=== PATIENT | male | born 1960 | race Caucasian/White ===

== ENCOUNTER 2017-03-27 21:23 | Emergency (ER) | payer OTHER ==
[~2017-03-27] VITALS: Ht 188 cm; Wt 112.0 kg
[~2017-03-27 21:23] MED LIST: LISI-334 PO
[2017-03-27] MEDS ORDERED: IV NORMAL SALINE 1,000ML 1,000 ML IV SCH (21:26)
[2017-03-27] MEDS ORDERED: FAMOTIDINE 20 MG TABLET PO ONE (21:30)
[2017-03-27] MEDS ORDERED: MORPHINE SULFATE 2 MG/ML DISP.SYRIN. IV ONE (21:30)
[2017-03-27] MEDS ORDERED: ASPIRIN 81 MG TAB.CHEW PO ONE (21:30)
[2017-03-27 21:56] LABS: BASO % 0 % (0-3); EOS # 0.1 x10^3/uL (0.0-0.7); EOS % 1 % (0-3); HEMATOCRIT 42.3 % (39.0-53.0); HEMOGLOBIN 14.9 g/dL (13.0-17.5); LYMPH # 1.8 x10^3/uL (1.0-4.8); LYMPH % 16 % (24-48); MEAN CORPUSCULAR HEMOGLOBIN 34 pg (25-35); MEAN CORPUSCULAR HGB CONC 35 g/dL (31-37); MEAN CORPUSCULAR VOLUME 95 fL (79-100); MONO # 0.9 x10^3/uL (0.0-1.1); MONO % 8 % (0-9); NEUT # 8.5 x10^3uL (1.8-7.7); NEUT % 75 % (31-73); PLATELET COUNT 296 x10^3/uL (140-400); RED BLOOD COUNT 4.44 x10^6/uL (4.30-5.70); RED CELL DISTRIBUTION WIDTH 12.6 % (11.5-14.5); WHITE BLOOD COUNT 11.3 x10^3/uL (4.0-11.0)
[2017-03-27 22:17] LABS: CALCIUM 8.8 mg/dL (8.5-10.1); CREATININE 0.9 mg/dL (0.7-1.3); GFR 87.6; POTASSIUM 3.9 mmol/L (3.5-5.1); TOTAL PROTEIN 7.3 g/dL (6.4-8.2)
[2017-03-27 22:18] LABS: BARBITURATES NEG (NEG); BENZODIAZEPINES NEG (NEG); CANNABINOIDS NEG (NEG); COCAINE NEG (NEG); METHADONE NEG (NEG); OPIATES NEG (NEG); PHENCYCLIDINE NEG (NEG)
[2017-03-27 22:19] LABS: AMPHETAMINE/METHAMPHETAMINE NEG (NEG)
--- NOTE | 2017-03-27 22:22 | ED.ADGEN ---
Past History Past Medical History: GERD, Hypertension, Other Past Surgical History: Cholecystectomy, Tonsillectomy Alcohol Use: Occasionally Drug Use: None Adult General Chief Complaint Chief Complaint "I did not feel quite right yesterday but today had developed chest pain this afternoon... Right side of my chest" HPI HPI Patient is a 56 year old male who presents with Rt. sided chest pain. Pt. has been moving. Patient denies any past history of cardiac disease. Patient does have a history of hypertension. There is some family history of cardiac disease late onset. 70s . No history of productive cough, fever or chills, drug abuse, or immunosuppression. Pain is somewhat reproducible right-sided chest. Pain is somewhat worse with deep breaths and cough. Pain is impressed last 2 hours currently rated 4 out of 10 Review of Systems Review of Systems Constitutional: Denies fever or chills [] Eyes: Denies change in visual acuity, redness, or eye pain [] HENT: Denies nasal congestion or sore throat [] Respiratory: Denies cough or shortness of breath [] Cardiovascular: No additional information not addressed in HPI [] GI: Denies abdominal pain, nausea, vomiting, bloody stools or diarrhea [] : Denies dysuria or hematuria [] Musculoskeletal: Denies back pain or joint pain [] Integument: Denies rash or skin lesions [] Neurologic: Denies headache, focal weakness or sensory changes [] Endocrine: Denies polyuria or polydipsia [] All other systems were reviewed and found to be within normal limits, except as documented in this note. Family History Family History Late onset cardiac disease, cancer Current Medications Current Medications Current Medications Medications (Trade) Dose Ordered Sig/Suhas Start Time Stop Time Status Last Admin Dose Admin Aspirin (Children'S Aspirin) 324 mg 1X ONCE 03/27/17 21:30 03/27/17 21:32 DC 03/27/17 21:50 324 MG Azithromycin (Zithromax) 500 mg 1X ONCE 03/28/17 00:00 03/28/17 00:01 DC 03/28/17 00:36 500 MG Famotidine (Pepcid) 20 mg 1X ONCE 03/27/17 21:30 03/27/17 21:32 DC 03/27/17 21:51 20 MG Info (Do NOT chart on this entry -- for MONITORING) 1 each PRN DAILY PRN 03/27/17 23:45 03/28/17 01:37 DC Iohexol (Omnipaque 300 Mg/ml) 75 ml 1X ONCE 03/28/17 00:15 03/28/17 00:16 DC 03/28/17 00:04 75 ML Ketorolac Tromethamine (Toradol) 30 mg 1X ONCE 03/28/17 00:00 03/28/17 00:01 DC 03/28/17 00:37 30 MG Morphine Sulfate (Morphine 2mg Syringe) 2 mg 1X ONCE 03/27/17 21:30 03/27/17 21:32 DC 03/27/17 21:50 2 MG Sodium Chloride 1,000 ml @ 1,000 mls/hr Q1H 03/27/17 21:26 03/27/17 22:25 DC 03/27/17 21:48 1,000 MLS/HR Allergies Allergies Allergies Coded Allergies Type Severity Reaction Last Updated Verified No Known Drug Allergies 07/26/15 No Physical Exam Physical Exam Constitutional: Well developed, well nourished, no acute distress, non-toxic appearance. [] HENT: Normocephalic, atraumatic, bilateral external ears normal, oropharynx moist, no oral exudates, nose normal. [] Eyes: PERRLA, EOMI, conjunctiva normal, no discharge. [] Neck: Normal range of motion, no tenderness, supple, no stridor. [] Cardiovascular:Heart rate regular rhythm, no murmur [] Lungs & Thorax: Bilateral breath sounds clear to auscultation [] Abdomen: Bowel sounds normal, soft, no tenderness, no masses, no pulsatile masses. Old surgical scars. Skin: Warm, dry, no erythema, no rash. []Tattoos Back: No tenderness, no CVA tenderness. [] Extremities: No tenderness, no cyanosis, no clubbing, ROM intact, no edema. No cording noted Neurologic: Alert and oriented X 3, normal motor function, normal sensory function, no focal deficits noted. [] Psychologic: Affect anxious judgement normal, mood normal. [] Current Patient Data Vital Signs Vital Signs Date Time Temp Pulse Resp B/P (MAP) Pulse Ox O2 Delivery O2 Flow Rate FiO2 03/27/17 21:23 98.1 87 26 97 Room Air Lab Results Laboratory Tests Test 03/27/17 21:38 03/27/17 21:57 03/28/17 00:57 White Blood Count 11.3 x10^3/uL (4.0-11.0) H Red Blood Count 4.44 x10^6/uL (4.30-5.70) Hemoglobin 14.9 g/dL (13.0-17.5) Hematocrit 42.3 % (39.0-53.0) Mean Corpuscular Volume 95 fL (79-100) Mean Corpuscular Hemoglobin 34 pg (25-35) Mean Corpuscular Hemoglobin Concent 35 g/dL (31-37) Red Cell Distribution Width 12.6 % (11.5-14.5) Platelet Count 296 x10^3/uL (140-400) Neutrophils (%) (Auto) 75 % (31-73) H Lymphocytes (%) (Auto) 16 % (24-48) L Monocytes (%) (Auto) 8 % (0-9) Eosinophils (%) (Auto) 1 % (0-3) Basophils (%) (Auto) 0 % (0-3) Neutrophils # (Auto) 8.5 x10^3uL (1.8-7.7) H Lymphocytes # (Auto) 1.8 x10^3/uL (1.0-4.8) Monocytes # (Auto) 0.9 x10^3/uL (0.0-1.1) Eosinophils # (Auto) 0.1 x10^3/uL (0.0-0.7) Basophils # (Auto) 0.0 x10^3/uL (0.0-0.2) Prothrombin Time 10.6 SEC (9.4-11.4) Prothrombin Time INR 1.0 (0.9-1.1) PTT 27 SEC (23-33) D-Dimer (Li) < 0.19 mg/L (0.00-0.50) Sodium Level 141 mmol/L (136-145) Potassium Level 3.9 mmol/L (3.5-5.1) Chloride Level 104 mmol/L (98-107) Carbon Dioxide Level 26 mmol/L (21-32) Anion Gap 11 (6-14) Blood Urea Nitrogen 13 mg/dL (8-26) Creatinine 0.9 mg/dL (0.7-1.3) Estimated GFR (Cockcroft-Gault) 87.6 Glucose Level 109 mg/dL (70-99) H Calcium Level 8.8 mg/dL (8.5-10.1) Magnesium Level 2.0 mg/dL (1.8-2.4) Total Bilirubin 4.0 mg/dL (0.2-1.0) H Direct Bilirubin 1.0 mg/dL (0.0-0.2) H Aspartate Amino Transferase (AST) 31 U/L (15-37) Alanine Aminotransferase (ALT) 56 U/L (16-63) Alkaline Phosphatase 79 U/L (46-116) Creatine Kinase 87 U/L (39-308) Creatine Kinase MB (Mass) 2.1 ng/mL (0.0-3.6) Creatine Kinase MB Relative Index 2.4 % (0-4) Troponin I Quantitative < 0.017 ng/mL (0-0.055) II-Inw-G-Type Natriuretic Peptide 11 pg/mL (0-124) Total Protein 7.3 g/dL (6.4-8.2) Albumin 4.0 g/dL (3.4-5.0) Lipase 145 U/L (73-393) Urine Collection Type Unknown Urine Color [place] Urine Clarity Clear Urine pH 5.5 Urine Specific [place] 1.025 Urine Protein Trace (NEG-TRACE) Urine Glucose (UA) Neg mg/dL (NEG) Urine Ketones (Stick) Trace mg/dL (NEG) Urine Blood Trace (NEG) Urine Nitrite Pos (NEG) Urine Bilirubin Neg (NEG) Urine Urobilinogen Dipstick 4 mg/dL (0.2 mg/dL) Urine Leukocyte Esterase Neg (NEG) Urine RBC 1-2 /HPF (0-2) Urine WBC 5-10 /HPF (0-4) Urine Squamous Epithelial Cells Few /LPF Urine Bacteria 0 /HPF (0-FEW) Urine Mucus Marked /LPF Urine Opiates Screen Neg (NEG) Urine Methadone Screen Neg (NEG) Urine Barbiturates Neg (NEG) Urine Phencyclidine Screen Neg (NEG) Urine Amphetamine/Methamphetamine Neg (NEG) Urine Benzodiazepines Screen Neg (NEG) Urine Cocaine Screen Neg (NEG) Urine Cannabinoids Screen Neg (NEG) Urine Ethyl Alcohol Neg (NEG) POC Troponin I 0.00 ng/ml (<0.08) EKG EKG My interpretation EKG shows sinus rhythm at 90 bpm no acute morphology[] Radiology/Procedures Radiology/Procedures My interpretation of CXR, dependent atelectasis, more or Lt. [] CT= No PE, or large Pneumonia Course & Med Decision Making Course & Med Decision Making Pertinent Labs and Imaging studies reviewed. (See chart for details). Take daily ASA . Follow up with primary. Return if any concerns. [] Final Impression Final Impression 1. Chest pain[] 2. Pleurisy 3. Bronchitis 4. Viral Syndrome Problems: Dragon Disclaimer Dragon Disclaimer This electronic medical record was generated, in whole or in part, using a voice recognition dictation system. MATTHEW ESPAÑA MD Mar 27, 2017 22:22
[2017-03-27 22:41] LABS: BACTERIA,URINE 0 /HPF (0-FEW); BILIRUBIN,URINE NEG (NEG); CLARITY,URINE CLEAR; COLOR,URINE AMBER; GLUCOSE,URINE NEG (NEG); NITRITE,URINE POS (NEG); SQUAMOUS EPITHELIAL CELL,UR FEW /LPF; UROBILINOGEN,URINE 4 mg/dL (0.2 mg/dL)
[2017-03-27] MEDS ORDERED: CONTRAST GIVEN MC PRN (23:45)
[2017-03-28] MEDS ORDERED: KETOROLAC 30 MG/ML VIAL. IV ONE
[2017-03-28] MEDS ORDERED: AZITHROMYCIN 250 MG TABLET. PO ONE
[2017-03-28] MEDS ORDERED: IOHEXOL 300 MG/ML 75 ML VIAL. IV ONE (00:15)
--- NOTE | 2017-03-28 00:47 | RAD ---
CTA scan of the Chest with Contrast (Pulmonary Embolism protocol) 03/28/2017 Clinical History: Chest pain and shortness of breath since earlier tonight. Technique: After the intravenous administration of 75 cc of Omnipaque 300, contiguous, 0.625 mm axial sections were obtained through the chest. 2 mm axial and 3D MIP coronal and sagittal reconstructed images were obtained. One or more of the following individualized dose reduction techniques were utilized for this study: 1. Automated exposure control. 2. Adjustment of the mA and/or kV according to patient size. 3. Use of iterative reconstruction technique. Findings: No filling defect is seen within the major branches of either pulmonary artery. There is no CT evidence of pulmonary embolism. The heart is mildly enlarged. The thoracic aorta is tortuous but tapers normally. Scattered atheromatous plaque formation is seen involving the thoracic aorta. Minimal dependent subsegmental atelectasis is seen involving both lungs. Linear bands of subsegmental atelectasis are seen involving the inferior aspect of the right middle lobe and lingula and both lower lobes. No pleural effusion or pneumothorax is seen. A 3.4 cm rounded low-attenuation lesion is seen involving the superior pole left kidney which likely represents a cyst. Impression: There is no CT evidence of pulmonary embolism. Electronically signed by: Gregory Foote MD (03/28/2017 12:43 AM) [id number]
[2017-03-28] MEDS ORDERED: AZIT250T PO (01:05)
[2017-03-28 01:26] VITALS: BP 128/73
--- NOTE | 2017-03-28 08:01 | RAD ---
Portable chest, 03/27/2017: History: Chest pain Comparison is made to a study from 07/26/2015. The heart size and pulmonary vascularity are normal. Hazy opacities along the cardiac margins are compatible with prominent epicardial fat pads accentuated by lordotic patient positioning. No acute infiltrate is seen. There is no evidence of pleural fluid. IMPRESSION: No acute cardiopulmonary abnormality is detected.
--- NOTE | 2017-03-28 10:48 | EKG ---
[address] [address] Test Date: 2017-03-27 Test Time: 21:29:32 Pat Name: RIC CASTRO Department: Room: Gender: M Director Skills: [place] : 1960 Requested By: MATTHEW ESPAÑA Order Number: [id number] Reading MD: Measurements Intervals [place] Rate: 90 P: 41 NE: 160 QRS: 39 QRSD: 78 T: 43 QT: 328 QTc: 405 Interpretive Statements SINUS RHYTHM OTHERWISE NORMAL ECG RI6.01 Unconfirmed report No previous ECG available for comparison
--- NOTE | 2017-03-28 10:48 | EKG ---
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
== END 2017-03-28 01:26 | disposition home or self-care (01) ==
LOC: ER 21:23
DX: R09.1 Pleurisy (principal); B34.9 Viral infection, unspecified; J40 Bronchitis, not specified as acute or chronic; I10 Essential (primary) hypertension; K21.9 Gastro-esophageal reflux disease without esophagitis
CPT/HCPCS: 36415; 71010; 71275; 80048; 80076; 80307; 81001; 82553; 83690; 83735; 83880; 84443; 84484; 85025; 85379; 85610; 85730; 87086; 93005; 96361; 96374; 96375; 99285; J0456; J1885; J2270; Q9967; G0479; J7030

== ENCOUNTER 2018-08-25 13:57 | Emergency (ER) | payer OTHER ==
[~2018-08-25] VITALS: Ht 188 cm; Wt 106.1 kg
[2018-08-25 13:57] VITALS: BP 146/84
[~2018-08-25 13:57] MED LIST changes: +AZIT250T PO
[2018-08-25] MEDS ORDERED: KETOROLAC 15 MG/ML VIAL. IM ONE (14:15)
--- NOTE | 2018-08-25 14:17 | PHYS DOC ---
Past History Past Medical History: Cancer (melanoma), GERD, Hypertension, Other Past Surgical History: Cancer Surgery (left neck resection secondary to melanoma), Cholecystectomy, Tonsillectomy Smoking: Non-smoker Alcohol Use: Occasionally Drug Use: None Adult General Chief Complaint Chief Complaint: BACK PAIN OR INJURY HPI HPI Patient is a 57-year-old male presents complaining of left neck and left low back pain with radiation into his left leg. This is been present for the past several weeks. No improvement with [therapy or massage therapy. No improvement with acetaminophen. It has been getting worse over time. Patient denies any loss of bowel or bladder control. Denies any trauma. Denies any fever. Denies history of IV drug use or abuse. Patient does have a history of malignant melanoma in the that was resected from his left neck. He has had no recurrence of this. Denies any recent weight changes.[] Review of Systems Review of Systems Constitutional: Denies fever or chills [] Eyes: Denies change in visual acuity, redness, or eye pain [] HENT: Denies nasal congestion or sore throat [] Respiratory: Denies cough or shortness of breath [] Cardiovascular: No chest pain or palpitations[] GI: Denies abdominal pain, nausea, vomiting, bloody stools or diarrhea [] : Denies dysuria or hematuria [] Musculoskeletal: See history of present illness[] Integument: Denies rash or skin lesions [] Neurologic: Denies headache, focal weakness or sensory changes [] Endocrine: Denies polyuria or polydipsia [] All other systems were reviewed and found to be within normal limits, except as documented in this note. Allergies Allergies Allergies Coded Allergies Type Severity Reaction Last Updated Verified No Known Drug Allergies 07/26/15 No Physical Exam Physical Exam Constitutional: Well developed, well nourished, no acute distress, non-toxic appearance. [] HENT: Normocephalic, atraumatic, bilateral external ears normal, oropharynx moist, no oral exudates, nose normal. [] Eyes: PERRLA, EOMI, conjunctiva normal, no discharge. [] Neck: Normal range of motion, tenderness in the left cervical paraspinal musculature and left trapezius, supple, no stridor. [] Cardiovascular:Heart rate regular rhythm, no murmur [] Lungs & Thorax: Bilateral breath sounds clear to auscultation [] Abdomen: Bowel sounds normal, soft, no tenderness, no masses, no pulsatile masses. [] Skin: Warm, dry, no erythema, no rash. [] Back: Tenderness in the left lumbar paraspinal musculature, full active range of motion, normal gait, no specific midline tenderness to percussion.no CVA tenderness. [] Extremities: No tenderness, no cyanosis, no clubbing, ROM intact, no edema. [] Neurologic: Alert and oriented X 3, normal motor function, normal sensory function, no focal deficits noted. [] Psychologic: Affect normal, judgement normal, mood normal. [] EKG EKG [] Radiology/Procedures Radiology/Procedures PROCEDURE: CT LUMBAR SPINE WO CONTRAST CT scan of the lumbar spine without contrast 08/25/2018 CLINICAL HISTORY: Low back pain. TECHNIQUE: Unenhanced, contiguous, 0.625 mm axial sections were obtained for lumbar spine. 3 mm reconstructed sagittal, axial and coronal images were obtained. One or more of the following individualized dose reduction techniques were utilized for this study: 1. Automated exposure control. 2. Adjustment of the mA and/or kV according to patient size. 3. Use of iterative reconstruction technique. FINDINGS: Sagittal and coronal reconstructed images demonstrate minimal S-shaped curvature of the thoracolumbar spine. Mild retrolisthesis of L2 in relation L3 is seen. Degenerative changes consisting of disc space narrowing, vertebral endplate sclerosis and mild anterior and posterior vertebral body osteophyte formation are seen at this level. Mild atherosclerotic calcification of the abdominal aorta is seen. Nonobstructing calculi are seen involving both kidneys. These measure 2 mm to 1 cm in size. Rounded low-attenuation lesions are seen involving the left kidney which likely represent cysts. These measure 5 mm to 3 cm in size. No fracture or subluxation of the lumbar vertebrae seen. The changes of degenerative disc disease are seen involving the lumbar disc spaces. These consist of minimal to mild generalized disc bulges, degenerative changes involving the facet joints and mild ligamentum flavum hypertrophy. These findings do not result in significant central spinal canal or neural foraminal stenosis at any level. IMPRESSION: Degenerative changes are seen involving the lumbar spine as outlined above. These findings do not result in significant central spinal canal or neural foraminal stenosis. No acute osseous abnormality is seen. PROCEDURE: CT CERVICAL SPINE WO CONTRAST CT scan of the cervical spine without contrast 08/25/2018 Clinical history: Left neck pain. Technique: Unenhanced, contiguous, 0.625 mm axial sections were obtained through the cervical spine. Axial, coronal and sagittal reconstructed images were obtained. One or more of the following individualized dose reduction techniques were utilized for this study: 1. Automated exposure control. 2. Adjustment of the mA and/or kV according to patient size. 3. Use of iterative reconstruction technique. Findings: Sagittal and coronal reconstructed images demonstrate mild S-shaped curvature of the cervical thoracic spine. There is reversal of the normal cervical lordosis. Degenerative changes consisting of vertebral endplate sclerosis and minimal to mild anterior and posterior vertebral body osteophyte formation are seen throughout the cervical disc spaces. Disc space narrowing is seen involving prominently the C6-7 disc. No fracture or subluxation of the cervical vertebrae is seen. Degenerative changes are seen throughout the cervical disc spaces consisting of minimal to mild generalized disc bulges and degenerative changes involving the uncovertebral and facet joints. These findings do not result in significant central spinal canal stenosis at any level. Mild to moderate left greater than right neural foraminal stenosis is seen at C3-4. IMPRESSION: Degenerative changes are seen involving the cervical disc spaces as discussed above. These findings do not result in significant central spinal canal stenosis at any level. Mild to moderate left greater than right neural foraminal stenosis is seen at C3-4. No acute osseous abnormality is seen.[] Course & Med Decision Making Course & Med Decision Making Pertinent Labs and Imaging studies reviewed. (See chart for details) ED course: Patient arrived, was placed in bed, and tolerated exam well. He was transported to and from [place] with any complications. After return of the imaging f indings, these were discussed with the patient who voiced understanding. He did achieve some measure of pain improvement with the IM ketorolac. All questions were answered. Patient was discharged in improved condition. Medical decision making: There is no evidence of a fracture, dislocation/subluxation, neurologic compromise, cauda equina syndrome, nor metastatic cancer given his previous cancer history.[] Dragon Disclaimer Dragon Disclaimer This electronic medical record was generated, in whole or in part, using a voice recognition dictation system. Departure Departure: Impression: Primary Impression: Neck pain Additional Impression: Low back pain Disposition: HOME, SELF-CARE Condition: IMPROVED Referrals: VALENTINO LUGO MD (PCP) Follow-up in 2 days Patient Instructions: Cervical Strain and Sprain with [facility], Low Back Strain with [facility] Additional Instructions: Follow-up with your regular doctor in 2 days. Return to the ER if worsening discomfort, loss of bowel or bladder control, or any other concerns Scripts Prednisone (PREDNISONE) 50 Mg Tablet 1 TAB PO DAILY for INFLAMMATION, #5 TAB Prov: TIFFANY KIRK DO 08/25/18 Orphenadrine Citrate (ORPHENADRINE CITRATE) 100 Mg Tablet.er 100 MG PO BID for BACK PAIN, #20 TAB.SR Prov: TIFFANY KIRK DO 08/25/18 Meloxicam (MELOXICAM) 7.5 Mg Tablet 7.5 MG PO DAILY for PAIN, #20 TAB Prov: TIFFANY KIRK DO 08/25/18 Problem Qualifiers Additional Impression: Low back pain Chronicity: acute Back pain laterality: left Sciatica presence: unspecified whether sciatica present Qualified Codes: M54.5 - Low back pain TIFFANY KIRK DO August 25, 2018 14:17
--- NOTE | 2018-08-25 14:55 | RAD ---
CT scan of the cervical spine without contrast 08/25/2018 Clinical history: Left neck pain. Technique: Unenhanced, contiguous, 0.625 mm axial sections were obtained through the cervical spine. Axial, coronal and sagittal reconstructed images were obtained. One or more of the following individualized dose reduction techniques were utilized for this study: 1. Automated exposure control. 2. Adjustment of the mA and/or kV according to patient size. 3. Use of iterative reconstruction technique. Findings: Sagittal and coronal reconstructed images demonstrate mild S-shaped curvature of the cervical thoracic spine. There is reversal of the normal cervical lordosis. Degenerative changes consisting of vertebral endplate sclerosis and minimal to mild anterior and posterior vertebral body osteophyte formation are seen throughout the cervical disc spaces. Disc space narrowing is seen involving prominently the C6-7 disc. No fracture or subluxation of the cervical vertebrae is seen. Degenerative changes are seen throughout the cervical disc spaces consisting of minimal to mild generalized disc bulges and degenerative changes involving the uncovertebral and facet joints. These findings do not result in significant central spinal canal stenosis at any level. Mild to moderate left greater than right neural foraminal stenosis is seen at C3-4. IMPRESSION: Degenerative changes are seen involving the cervical disc spaces as discussed above. These findings do not result in significant central spinal canal stenosis at any level. Mild to moderate left greater than right neural foraminal stenosis is seen at C3-4. No acute osseous abnormality is seen. Electronically signed by: Gregory Foote MD (08/25/2018 2:52 PM) [facility]
--- NOTE | 2018-08-25 15:00 | RAD ---
CT scan of the lumbar spine without contrast 08/25/2018 CLINICAL HISTORY: Low back pain. TECHNIQUE: Unenhanced, contiguous, 0.625 mm axial sections were obtained for lumbar spine. 3 mm reconstructed sagittal, axial and coronal images were obtained. One or more of the following individualized dose reduction techniques were utilized for this study: 1. Automated exposure control. 2. Adjustment of the mA and/or kV according to patient size. 3. Use of iterative reconstruction technique. FINDINGS: Sagittal and coronal reconstructed images demonstrate minimal S-shaped curvature of the thoracolumbar spine. Mild retrolisthesis of L2 in relation L3 is seen. Degenerative changes consisting of disc space narrowing, vertebral endplate sclerosis and mild anterior and posterior vertebral body osteophyte formation are seen at this level. Mild atherosclerotic calcification of the abdominal aorta is seen. Nonobstructing calculi are seen involving both kidneys. These measure 2 mm to 1 cm in size. Rounded low-attenuation lesions are seen involving the left kidney which likely represent cysts. These measure 5 mm to 3 cm in size. No fracture or subluxation of the lumbar vertebrae seen. The changes of degenerative disc disease are seen involving the lumbar disc spaces. These consist of minimal to mild generalized disc bulges, degenerative changes involving the facet joints and mild ligamentum flavum hypertrophy. These findings do not result in significant central spinal canal or neural foraminal stenosis at any level. IMPRESSION: Degenerative changes are seen involving the lumbar spine as outlined above. These findings do not result in significant central spinal canal or neural foraminal stenosis. No acute osseous abnormality is seen. Electronically signed by: Gregory Foote MD (08/25/2018 2:57 PM) [facility]
[2018-08-25] MEDS ORDERED: MELO7.5T29 PO (15:07)
[2018-08-25] MEDS ORDERED: ORPH-16 PO (15:07)
[2018-08-25] MEDS ORDERED: PRED50TA PO (15:07)
== END 2018-08-25 15:24 | disposition home or self-care (01) ==
LOC: ER 13:57
DX: M54.2 Cervicalgia (principal); M54.5 Low back pain; I10 Essential (primary) hypertension; K21.9 Gastro-esophageal reflux disease without esophagitis
CPT/HCPCS: 72125; 72131; 96372; 99284; J1885

== ENCOUNTER 2020-08-06 23:29 | Observation (INO) | payer OTHER ==
[~2020-08-06] VITALS: Ht 188 cm; Wt 115.7 kg
[~2020-08-06 23:29] MED LIST changes: -LISI-334 PO; +LISI20TA18 PO; +MELO7.5T29 PO; +ORPH-16 PO; +PRED50TA PO
--- NOTE | 2020-08-06 23:40 | PHYS DOC ---
Past History Past Medical History: Cancer, GERD, Hypertension, TIA, Other Past Surgical History: Cancer Surgery, Cholecystectomy, Tonsillectomy Smoking: Non-smoker Alcohol Use: Occasionally Drug Use: None General Adult EDM: Chief Complaint: CHEST PAIN HPI: HPI: " ... I ve been having chest pain off and on all week.. it been christina constant to night..." I do have hx HTN.. and TIA.. " Patient is a 59 year old male who presents with above hx and complaints of CP. Pt. localizes pain to center of chest, some radiation to Lt. . No hx trauma. No hx of previous cardiac disoreder. Pt. follows at [facility] with Dr. Titus. Patient has past medical history of hypertension and low high density lipoprotein. Patient has past medical history of a TIA. Patient has completed COVID Moderna x 2, last vaccination on July 21. . Hx. Pleursey 04/02. Patient normally follows at [facility]. There is family history of A. fib with mother. Father of cancer etiology unknown. Patient does occasionally use marijuana and uses alcohol. No history of previous NH. No history of travel. No history of significant ill contacts. No history immunosuppression Review of Systems: Review of Systems: Constitutional: Denies fever or chills Eyes: Denies change in visual acuity HENT: Denies nasal congestion or sore throat Respiratory: Denies cough or shortness of breath Cardiovascular: Complaints of chest pain or discomfort. GI: Denies abdominal pain, nausea, vomiting, bloody stools or diarrhea : Denies dysuria Musculoskeletal: Denies back pain or joint pain Integument: Denies rash Neurologic: Denies headache, focal weakness or sensory changes Endocrine: Denies polyuria or polydipsia Lymphatic: Denies swollen glands Psychiatric: Denies depression or anxiety Family History: Family History: Dad of cancer, mother has A. fib, Current Medications: Current Meds: See nursing for home meds Allergies: Allergies: Allergies Coded Allergies Type Severity Reaction Last Updated Verified No Known Drug Allergies 07/26/15 No Physical Exam: PE: Constitutional: Well developed, well nourished, moderate acute distress, non- toxic appearance. [] HENT: Normocephalic, atraumatic, bilateral external ears normal, oropharynx moist, no oral exudates, nose normal. [] Eyes: PERRLA, EOMI, conjunctiva normal, no discharge. [] Neck: Normal range of motion, no tenderness, supple, no stridor. [] Cardiovascular:Heart rate regular rhythm, no murmur [] Lungs & Thorax: Bilateral breath sounds equal apex with scattered wheezes auscultation [] Abdomen: Bowel sounds normal, soft, no tenderness, no masses, no pulsatile masses. Old surgical scars Skin: Warm, dry, no erythema, no rash. [] Back: No tenderness, no CVA tenderness. [] Extremities: No tenderness, no cyanosis, no clubbing, ROM intact, no edema. No cording appreciated Neurologic: Alert and oriented X 3, normal motor function, normal sensory functi on, no focal deficits noted. [] Psychologic: Affect anxious, judgement normal, mood normal. [] EKG: EKG: My interpretation EKG shows sinus rhythm at 80 bpm. No findings acute STEMI with contralateral changes [] Radiology/Procedures: Radiology/Procedures: [][place] [address] IMAGING REPORT Signed PATIENT: RIC CASTRO SACCOUNT: [id number] : 1960 LOCATION: ER AGE: 59 SEX: M EXAM STATUS: PRE ER ORD. PHYSICIAN: MATTHEW ESPAÑA MD REASON: chest pain PROCEDURE: CHEST AP ONLY Study: XR CHEST 1V Indication: Chest pain. Comparison: 03/27/2017 Findings: Unchanged configuration of the cardiomediastinal silhouette which is again at t he upper limits of normal for size. Unremarkable bree. No confluent infiltrate, layering effusion or pneumothorax. No free air seen under the diaphragm. Lower cervical ACDF construct. Impression: No acute radiographic abnormality of the chest. No relevant change from the 03/27/2017 comparison. Electronically signed by: ESTEBAN MONTILLA MD (08/06/2020 11:49 PM) [facility] DICTATED AND SIGNED BY: ESTEBAN MONTILLA MD DATE: 08/06/20 [id number] CC: MATTHEW ESPAÑA MD; VALENTINO TITUS MD ~MTH0 0 Heart Score: C/O Chest Pain: Yes HEART Score for Chest Pain: HEART Score for Chest Pain Response (Comments) Value History Slighlty/Non-Suspicious 0 ECG Normal 0 Age >45 - < 65 1 Risk Factors 1 or 2 Risk Factors 1 Troponin < Normal Limit 0 Total 2 Risk Factors: Risk Factors: DM, Current or recent (<one month) smoker, HTN, HLP, family history of CAD, obesity. Risk Scores: Score 0 - 3: 2.5% MACE over next 6 weeks - Discharge Home Score 4 - 6: 20.3% MACE over next 6 weeks - Admit for Clinical Observation Score 7 - 10: 72.7% MACE over next 6 weeks - Early Invasive Strategies Course & Med Decision Making: Course & Med Decision Making Pertinent Labs and Imaging studies reviewed. (See chart for details) Discussed presentation,hx, testing and tx., plan with . Admit to his service and cardiology consult. Impression: 1. Chest Pain 2. HTN 3. Elevated LFTs AST 73, Alt 163, Reza 5.8, Direct 1.2 [] Dragon Disclaimer: Dragon Disclaimer: This electronic medical record was generated, in whole or in part, using a voice recognition dictation system. Departure Departure: Referrals: VALENTINO TITUS MD (PCP) [place] Disclaimer This chart was dictated in whole or in part using Voice Recognition software in a busy, high-work load, and often noisy Emergency Department environment. It may contain unintended and wholly unrecognized errors or omissions. Dragon Disclaimer This chart was dictated in whole or in part using Voice Recognition software in a busy, high-work load, and often noisy Emergency Department environment. It may contain unintended and wholly unrecognized errors or omissions. AMTTHEW ESPAÑA MD Aug 06, 2020 23:40
--- NOTE | 2020-08-06 23:51 | RAD ---
Study: XR CHEST 1V Indication: Chest pain. Comparison: 03/27/2017 Findings: Unchanged configuration of the cardiomediastinal silhouette which is again at the upper limits of nor mal for size. Unremarkable bree. No confluent infiltrate, layering effusion or pneumothorax. No free air seen under the diaphragm. Lower cervical ACDF construct. Impression: No acute radiographic abnormality of the chest. No relevant change from the 03/27/2017 comparison. Electronically signed by: ESTEBAN MONTILLA MD (08/06/2020 11:49 PM) [facility]
[2020-08-07] MEDS ORDERED: ASPIRIN CHEWABLE 81 MG TABLET. PO ONE
[2020-08-07] MEDS ORDERED: IV RINGERS SOLUTION,LACTATED 1,000 ML IV SCH
[2020-08-07 00:04] LABS: BASO # 0.1 x10^3/uL (0.0-0.2); BASO % 1 % (0-3); EOS # 0.2 x10^3/uL (0.0-0.7); EOS % 2 % (0-3); HEMATOCRIT 41.7 % (39.0-53.0); HEMOGLOBIN 14.4 g/dL (13.0-17.5); LYMPH % 27 % (24-48); MEAN CORPUSCULAR HEMOGLOBIN 34 pg (25-35); MEAN CORPUSCULAR HGB CONC 34 g/dL (31-37); MEAN CORPUSCULAR VOLUME 100 fL (79-100); MONO # 0.5 x10^3/uL (0.0-1.1); MONO % 7 % (0-9); NEUT # 4.6 x10^3uL (1.8-7.7); NEUT % 62 % (31-73); PLATELET COUNT 258 x10^3/uL (140-400); RED BLOOD COUNT 4.17 x10^6/uL (4.30-5.70); RED CELL DISTRIBUTION WIDTH 12.5 % (11.5-14.5); WHITE BLOOD COUNT 7.4 x10^3/uL (4.0-11.0)
[2020-08-07 00:12] LABS: BARBITURATES NEG (NEG); BENZODIAZEPINES NEG (NEG); CANNABINOIDS POS (NEG); COCAINE NEG (NEG); METHADONE NEG (NEG); OPIATES NEG (NEG); PHENCYCLIDINE NEG (NEG)
[2020-08-07 00:14] LABS: CREATININE 0.9 mg/dL (0.7-1.3); GFR 86.7; POTASSIUM 3.4 mmol/L (3.5-5.1)
[2020-08-07 00:20] LABS: AMPHETAMINE/METHAMPHETAMINE NEG (NEG)
[2020-08-07 00:22] LABS: BILIRUBIN,URINE NEG (NEG); CLARITY,URINE CLEAR; COLOR,URINE AMBER; GLUCOSE,URINE NEG (NEG)
[2020-08-07 00:23] LABS: BACTERIA,URINE 0 /HPF (0-FEW); NITRITE,URINE NEG (NEG); WBC,URINE 0 /HPF (0-4)
[2020-08-07 00:26] LABS: ALBUMIN 4.3 g/dL (3.4-5.0); DIRECT BILIRUBIN 1.2 mg/dL (0.0-0.2); MAGNESIUM 1.9 mg/dL (1.8-2.4); TOTAL BILIRUBIN 5.4 mg/dL (0.2-1.0); TOTAL PROTEIN 7.2 g/dL (6.4-8.2)
[2020-08-07] MEDS ORDERED: ACETAMINOPHEN 325 MG TABLET PO PRN (01:15)
[2020-08-07] MEDS ORDERED: ONDANSETRON PF 4 MG/2 ML VIAL. IVP PRN (01:15)
[2020-08-07] MEDS ORDERED: NITROGLYCERIN OINT 1 GM PACKET. TP ONE (02:00)
[2020-08-07] MEDS ORDERED: SILD50TA PO (02:08)
[2020-08-07] MEDS ORDERED: CETI10TA16 PO (02:08)
[2020-08-07] MEDS ORDERED: OMEP20CA16 PO (02:08)
--- NOTE | 2020-08-07 03:00 | NUR ---
Admission: The patient, RIC CASTRO, 59 y/o, M admitted by IRA VARGAS MD, was given written information regarding hospital policies, unit procedures and contact persons. Pt arrived to ICU bed 5 via gurney, accompanied by [facility] and nursing sup. Pt amb independently from rney to sit on bedside, steady gait noted. Pt here for c/o substernal chest pain/pressure x2 days. Dr. Bashir consulted, will call in AM. Pt placed on telemetry, showing SR with rate in the 70's. PMH and home meds reviewed. Oriented pt to room and POC, V/U. Call light in reach. Valuables were checked and logged. Left in room with pt.
[2020-08-07 03:05] VITALS: BP 158/97
[2020-08-07] MEDS ORDERED: CYAN100031 PO (03:34)
[2020-08-07] MEDS ORDERED: CIDE500T PO (03:34)
[2020-08-07] MEDS ORDERED: CHOL500051 PO (03:34)
--- NOTE | 2020-08-07 04:58 | EKG ---
[address] [address] Test Date: 2020-08-06 Test Time: 23:41:01 Pat Name: RIC CASTRO Department: Room: Gender: M Pen Rider: : 1960 Requested By: MATTHEW ESPAÑA Order Number: [id number] Reading MD: Measurements Intervals [place] Rate: 80 P: 39 LA: 166 QRS: 24 QRSD: 84 T: 43 QT: 360 QTc: 419 Interpretive Statements SINUS RHYTHM NORMAL ECG RI6.02 No previous ECG available for comparison
[2020-08-07 05:35] VITALS: BP 131/84
[2020-08-07] MEDS ORDERED: ASPIRIN CHEWABLE 81 MG TABLET. PO SCH (08:00)
[2020-08-07] MEDS ORDERED: NITROGLYCERIN OINT 1 GM PACKET. TP SCH (09:00)
[2020-08-07 11:30] VITALS: BP 163/86
[2020-08-07 11:42] LABS: CALCIUM 8.6 mg/dL (8.5-10.1); CREATININE 0.7 mg/dL (0.7-1.3); GFR 115.8; POTASSIUM 3.5 mmol/L (3.5-5.1)
[2020-08-07] MEDS ORDERED: IOHEXOL 300 MG/ML 75 ML VIAL. IV ONE (11:45)
[2020-08-07 11:50] LABS: ALBUMIN 3.6 g/dL (3.4-5.0); ALBUMIN/GLOBULIN RATIO 1.3 (1.0-1.7); TOTAL BILIRUBIN 4.9 mg/dL (0.2-1.0); TOTAL PROTEIN 6.4 g/dL (6.4-8.2)
[2020-08-07] MEDS ORDERED: CONTRAST GIVEN. MC PRN (12:00)
--- NOTE | 2020-08-07 13:17 | PDOC2 ---
CONSULT DOS: DATE: 08/07/20 TIME: 13:17 Reason for Consult: Chest pain Referring Physician: Dr. Castaneda Chief Complaint Chest pain Source: Chart review, Patient Problem List Problems Medical Problems: (1) Chest pain Status: Acute History of Present Illness 59-year-old male without any previous cardiac history presented with a 2-day history of on and off retrosternal chest pain that he described as sharp in na ture, without any radiation associated with mild shortness of breath, 6/10 severity. He denied any orthopnea/PND, palpitations or syncope. Past Medical History Gastroesophageal reflux disease Hypertension TIA Gilbert's syndrome Past Surgical History Cholecystectomy Tonsillectomy Family History Atrial fibrillation, hypertension, negative for premature coronary disease Social History Patient denied any smoking or drug abuse but admitted to moderate intake of alcohol Current Medications Current Medications Aspirin (Aspirin Chewable) 324 mg 1X ONCE PO Last administered on 08/07/20at 00:05; Start 08/07/20 at 00:00; Stop 08/07/20 at 00:01; Status DC Lactated Ringer's 1,000 ml @ 100 mls/hr Q10H IV Last administered on 08/07/20at 00:06; Start 08/07/20 at 00:00; Stop 08/07/20 at 09:59; Status DC Ondansetron HCl (Zofran) 4 mg PRN Q4HRS PRN IVP NAUSEA/VOMITING; Start 08/07/20 at 01:15; Stop 08/08/20 at 01:14 Acetaminophen (Tylenol) 650 mg PRN Q4HRS PRN PO FEVER > 100.3'F Last administered on 08/07/20at 08:09; Start 08/07/20 at 01:15; Stop 08/08/20 at 01:14 Aspirin (Aspirin Chewable) 81 mg DAILYWBKFT PO Last administered on 08/07/20at 08:03; Start 08/07/20 at 08:00 Nitroglycerin (Nitro-Bid Oint) 0.5 inch TID TP Last administered on 08/07/20at 01:48; Start 08/07/20 at 09:00 Nitroglycerin (Nitro-Bid Oint) 0.5 inch 1X ONCE TP ; Start 08/07/20 at 02:00; Stop 08/07/20 at 02:01; Status DC Iohexol (Omnipaque 300 Mg/ml) 75 ml 1X ONCE IV Last administered on 08/07/20at 12:42; Start 08/07/20 at 11:45; Stop 08/07/20 at 11:55; Status DC Info (Do NOT chart on this entry -- for MONITORING) 1 each PRN DAILY PRN MC SEE COMMENTS; Start 08/07/20 at 12:00; Stop 08/09/20 at 11:59 Active Scripts Active Reported B-12 (Cyanocobalamin (Vitamin B-12)) 1,000 Mcg Tablet.er 1,000 Mcg PO DAILY LAST DOSE GIVEN: DATE: TIME: NEXT DOSE DUE: DATE: TIME: Vitamin D3 (Cholecalciferol (Vitamin D3)) 125 Mcg Capsule 125 Mcg PO DAILY LAST DOSE GIVEN: DATE: TIME: NEXT DOSE DUE: DATE: TIME: Apple Cider Vinegar (Cider Vinegar) 500 Mg Tablet 500 Mg PO DAILY LAST DOSE GIVEN: DATE: TIME: NEXT DOSE DUE: DATE: TIME: Omeprazole 20 Mg Capsule.dr 20 Mg PO BID LAST DOSE GIVEN: DATE: TIME: NEXT DOSE DUE: DATE: TIME: Sildenafil Citrate 50 Mg Tablet 50 Mg PO PRN PRN LAST DOSE GIVEN: DATE: TIME: NEXT DOSE DUE: DATE: TIME: Cetirizine Hcl 10 Mg Tablet 10 Mg PO DAILY LAST DOSE GIVEN: DATE: TIME: NEXT DOSE DUE: DATE: TIME: Lisinopril 20 Mg Tablet 20 Mg PO DAILY LAST DOSE GIVEN: DATE: TIME: NEXT DOSE DUE: DATE: TIME: Allergies: Coded Allergies: No Known Drug Allergies (Unverified , 07/26/15) PSYCHOLOGICAL ROS: No: Hallucinations Eyes: No: Loss of vision HEENT: No: Epistaxis Respiratory: YES: Shortness of breath Cardiovascular: yes: Chest Pain Gastrointestinal: No: Vomiting, Diarrhea Neurological: No: Seizures General: Alert, No acute distress HEENT: Atraumatic Lungs: Clear to auscultation Abdomen: Soft, No tenderness Extremities: No edema Neuro: Normal speech Psych/Mental Status: Mood NL VITALS Vital Signs Date Time Temp Pulse Resp B/P (MAP) Pulse Ox O2 Delivery O2 Flow Rate FiO2 08/07/20 11:30 97.8 78 14 163/86 (111) 97 Room Air Labs Laboratory Tests Test 08/06/20 23:43 08/07/20 05:42 08/07/20 05:43 08/07/20 08:50 White Blood Count 7.4 x10^3/uL (4.0-11.0) Red Blood Count 4.17 x10^6/uL (4.30-5.70) Hemoglobin 14.4 g/dL (13.0-17.5) Hematocrit 41.7 % (39.0-53.0) Mean Corpuscular Volume 100 fL (79-100) Mean Corpuscular Hemoglobin 34 pg (25-35) Mean Corpuscular Hemoglobin Concent 34 g/dL (31-37) Red Cell Distribution Width 12.5 % (11.5-14.5) Platelet Count 258 x10^3/uL (140-400) Neutrophils (%) (Auto) 62 % (31-73) Lymphocytes (%) (Auto) 27 % (24-48) Monocytes (%) (Auto) 7 % (0-9) Eosinophils (%) (Auto) 2 % (0-3) Basophils (%) (Auto) 1 % (0-3) Neutrophils # (Auto) 4.6 x10^3uL (1.8-7.7) Lymphocytes # (Auto) 2.0 x10^3/uL (1.0-4.8) Monocytes # (Auto) 0.5 x10^3/uL (0.0-1.1) Eosinophils # (Auto) 0.2 x10^3/uL (0.0-0.7) Basophils # (Auto) 0.1 x10^3/uL (0.0-0.2) Prothrombin Time 11.1 SEC (9.4-11.4) Prothromb Time International Ratio 1.1 (0.9-1.1) Activated Partial Thromboplast Time 28 SEC (23-33) D-Dimer (Li) 0.28 mg/L (0.00-0.50) Urine Collection Type Unknown Urine Color Linda Urine Clarity Clear Urine pH 6.5 Urine Specific [place]elin 1.020 Urine Protein Neg (NEG-TRACE) Urine Glucose (UA) Neg mg/dL (NEG) Urine Ketones (Stick) Neg mg/dL (NEG) Urine Blood Trace (NEG) Urine Nitrite Neg (NEG) Urine Bilirubin Neg (NEG) Urine Urobilinogen Dipstick 2.0 mg/dL (0.2 mg/dL) Urine Leukocyte Esterase Neg (NEG) Urine RBC 3-5 /HPF (0-2) Urine WBC 0 /HPF (0-4) Urine Squamous Epithelial Cells None /LPF Urine Bacteria 0 /HPF (0-FEW) Sodium Level 141 mmol/L (136-145) 142 mmol/L (136-145) Potassium Level 3.4 mmol/L (3.5-5.1) 3.5 mmol/L (3.5-5.1) Chloride Level 106 mmol/L (98-107) 107 mmol/L (98-107) Carbon Dioxide Level 25 mmol/L (21-32) 24 mmol/L (21-32) Anion Gap 10 (6-14) 11 (6-14) Blood Urea Nitrogen 12 mg/dL (8-26) 12 mg/dL (8-26) Creatinine 0.9 mg/dL (0.7-1.3) 0.7 mg/dL (0.7-1.3) Estimated GFR (Cockcroft-Gault) 86.7 115.8 Glucose Level 120 mg/dL (70-99) 91 mg/dL (70-99) Calcium Level 9.0 mg/dL (8.5-10.1) 8.6 mg/dL (8.5-10.1) Magnesium Level 1.9 mg/dL (1.8-2.4) Total Bilirubin 5.4 mg/dL (0.2-1.0) 4.9 mg/dL (0.2-1.0) Direct Bilirubin 1.2 mg/dL (0.0-0.2) Aspartate Amino Transf (AST/SGOT) 73 U/L (15-37) 71 U/L (15-37) Alanine Aminotransferase (ALT/SGPT) 169 U/L (16-63) 153 U/L (16-63) Alkaline Phosphatase 74 U/L (46-116) 65 U/L (46-116) Creatine Kinase 79 U/L (39-308) Troponin I Quantitative < 0.017 ng/mL (0-0.055) < 0.017 ng/mL (0-0.055) < 0.017 ng/mL (0-0.055) PW-Lgu-B-Type Natriuretic Peptide 29 pg/mL (0-124) Total Protein 7.2 g/dL (6.4-8.2) 6.4 g/dL (6.4-8.2) Albumin 4.3 g/dL (3.4-5.0) 3.6 g/dL (3.4-5.0) Lipase 94 U/L (73-393) 75 U/L (73-393) Urine Opiates Screen Neg (NEG) Urine Methadone Screen Neg (NEG) Urine Barbiturates Neg (NEG) Urine Phencyclidine Screen Neg (NEG) Urine Amphetamine/Methamphetamine Neg (NEG) Urine Benzodiazepines Screen Neg (NEG) Urine Cocaine Screen Neg (NEG) Urine Cannabinoids Screen Pos (NEG) Urine Ethyl Alcohol Pos (NEG) BUN/Creatinine Ratio 17 (6-20) Albumin/Globulin Ratio 1.3 (1.0-1.7) Assessment/Plan 1. Chest pain with atypical features and most probably musculoskeletal. Myocardial infarction has been ruled out. Plan for 2D echo and Lexiscan nuclear stress test as an outpatient. 2. Hypertension: Blood pressure elevated. Resume home medication lisinopril and titrate for better control. 3. Elevated LFTs most probably secondary to his known history of Gilbert's syndrome. Importance of abstinence from alcohol use reemphasized. Thank you for your consultation MARIANNA QUINTANA MD Aug 07, 2020 13:17
--- NOTE | 2020-08-07 13:23 | RAD ---
EXAM: Abdomen and pelvis CT with intravenous contrast. HISTORY: Abnormal liver enzyme laboratory values. TECHNIQUE: Computed tomographic images of the abdomen and pelvis were obtained following the administ ration of intravenous contrast. Multiplanar reformatting was performed. *One or more of the following individualized dose reduction techniques were utilized for this examina tion: 1. Automated exposure control. 2. Adjustment of the mA and/or kV according to patient size. 3. Use of iterative reconstruction technique. COMPARISON: 11/26/2009. FINDINGS: Evaluation of the lower thorax demonstrates left greater than right posterior dependent and basilar atelectasis. There is no infiltrate or pleural effusion. The heart is normal in size. There is mild hepatic steatosis. There are several small hypodense lesions within the liver, the largest of which measures 1.3 cm within the right hepatic lobe adjacent to the falciform ligament. The smaller lesions are not typical in appearance for cysts. The gallbladder is surgically absent. The pancreas, spleen and adrenal glands are unremarkable. There is a partially duplicated left renal collecting system. There has been near complete resolution of a previously demonstrated complex left lateral perinephric fluid collection. There are multiple bilateral renal cysts. There are nonobstruct ing bilateral renal stones. There is no appendicitis. There is no bowel obstruction. The bladder is n early empty. The aorta is normal in caliber. There is no lymphadenopathy. There is no suspicious osse ous lesion. IMPRESSION: 1. Multiple small subtle areas of hypodensity within the liver, the largest of which measures 1.3 cm within the right hepatic lobe. This largest lesion may be a cyst. However, the smaller lesions are no t typical in appearance for cysts. There is no convincing correlate on the prior exam. This is concer janae for liver metastases. MRI may be useful for characterization. This is superimposed on mild hepat ic steatosis. 2. Partially duplicated left renal collecting system. There has been near complete resolution of a pr eviously demonstrated complex fluid collection along the left lateral kidney. There are multiple janay l cysts and nonobstructing renal stones. 3. Bilateral posterior dependent and basilar atelectasis. Electronically signed by: Jacquie Brothers MD (08/07/2020 1:21 PM) [id number]
[2020-08-07] MEDS ORDERED: LISINOPRIL 20 MG TABLET PO SCH (13:30)
[2020-08-07 13:39] VITALS: BP 163/86
--- NOTE | 2020-08-07 13:55 | NUR ---
DISCHARGE NOTE Pt discharged today by Dr. Castaneda. Pt picked up by his and escorted home. Pt verbalized understanding of discharge instructions. Pt is to follow up with cardiology for stress test and PCP in 7-10 days or sooner if needed. Ambulated off unit with GCS 15 and VSS upon discharge. CC, RN
[2020-08-07 21:58] LABS: THYROID STIM HORMONE (TSH) 1.746 uIU/mL (0.358-3.740)
--- NOTE | 2020-08-08 13:28 | SSS ---
ADMIT DATE: 08/07/2020 HISTORY OF PRESENT ILLNESS: The patient is a 59-year-old male patient, who came to the emergency room with the complaint of chest pain off and on all week, has been constant to the right. He localizes pain to the center with chest. He rated about 5-6/10 shortness of breath, nausea, vomiting, sweating with no radiation and alleviated by rest. This has been going on for the last few days. He came to the Emergency Room where he was extensively evaluated and has had an EKG which showed he was in sinus rhythm at 80 beats per minute with no evidence of STEMI. He had lab work, which showed that he has hypokalemia, liver enzyme was slightly elevated, particularly his total bilirubin, and AST, ALT, alkaline phosphatase are normal. First set of cardiac enzymes showed troponin to be less than 0.017. D-dimer was normal. He was admitted to do 2 more sets of cardiac enzymes and consult the interventional nurse. In fact he had 2 more sets of cardiac enzymes that ruled out myocardial infarction; however, his liver enzymes were elevated, particularly his total bilirubin. Although, he had cholecystectomy, I did arrange for him to have a CT scan of the abdomen and pelvis with IV contrast and it did show that the patient has multiple subtle areas of hypodensity within the liver, the largest of which measures 1.3 cm within the right hepatic lobe, the largest lesion may be a cyst; however, the smaller lesions are not typical in appearance for cyst. There is no convincing correlate on the prior exam. This is concerning for liver metastasis. MRI may be useful for characterization. This is superimposed on mild hepatic steatosis. He had also partially duplicated left renal collecting system. There has been near complete resolution of the previously demonstrated complex fluid collection along the left lateral kidney and there are multiple renal cysts and nonobstructing renal stones. The patient was seen by the interventional nurse who recommended an echocardiogram as well as stress test as an outpatient. The patient was informed of the findings of the CT scan and advised to contact his primary care physician to pursue this matter further. PAST MEDICAL HISTORY: Significant for hypertension, hyperlipidemia, nephrolithiasis, Gilbert's syndrome, TIA, osteoarthritis of both knees. He has gastroesophageal reflux disease, morbid obesity and obstructive sleep apnea on CPAP. PAST SURGICAL HISTORY: Significant for cholecystectomy, neck surgery, coccygectomy, tonsillectomy as well as colonoscopy. ALLERGIES: No known drug allergies. MEDICATIONS: He is currently on the following medications. He is on: 1. Cetirizine 10 mg once a day. 2. Sildenafil citrate 50 mg as needed for erectile dysfunction. 3. Lisinopril 20 mg once a day. 4. Omeprazole 20 mg twice a day. 5. Cyanocobalamin 1000 mcg tablet once a day. 6. Cholecalciferol 125 mcg once a day. 7. Cider vinegar 500 mg once a day. FAMILY HISTORY: Has two sisters, 1 older and 1 younger, the younger has arrhythmias and she is a drug abuser. No brothers. His father at the age of 55 because of cancer, the primary of which is unknown. Mother is still alive at age 80 and has rheumatoid arthritis, atrial fibrillation, congestive heart failure as well as esophageal cancer. SOCIAL HISTORY: He is , has two children, and an adopted third. He does not smoke. Drink alcohol twice a week, takes bourbon and beer. Does not use any drugs. 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 REVIEW OF SYSTEMS: As per history of present illness on arrival. PHYSICAL EXAMINATION: GENERAL: He looked jaundiced, but there is no cyanosis, no lymphadenopathy, no thyromegaly, no jugular venous distention. No limb edema. VITAL SIGNS: His heart rate was 79, blood pressure 150/70, his temperature was 97.8, respiratory rate was 16 and oxygen saturation was 97%. HEAD, EYES, EARS, NOSE, AND THROAT: Normocephalic, atraumatic. NECK: Supple. HEART: Showed normal first and second heart sounds, no gallop, rub or murmur.. CHEST: Clear to auscultation. No crepitation or rhonchi. ABDOMEN: Distended, soft, nontender. NEUROLOGIC: He was awake, alert, responding appropriately. Cranial nerves intact. He moves all extremities without difficulty. LABORATORY DATA: His lab work on admission showed a white cell count 7400, hemoglobin 14.4, hematocrit 42, MCV 100 and platelet count of 258,000 with normal manual differential. His chemistry showed a serum sodium 141, potassium 3.4, chloride 106, bicarbonate 25, anion gap of 10, BUN 12, creatinine 0.9. Estimated GFR was 86 mL per minute. His glucose was 120, calcium was 9, magnesium was 1.9, total bilirubin is 5.4. AST and ALT are elevated. Alkaline phosphatase is normal. His total protein was 7.2, albumin was 4.3, lipase was 94. His prothrombin time, INR and aPTT as well as D-dimer are all normal. His urinalysis was unremarkable and urine toxic screen was positive for alcohol. His chest x-ray showed that the cardiomediastinal silhouette is in the upper limit of normal in size; unremarkable bree; no confluent infiltrate, layering pleural effusion or pneumothorax; no free air is seen under the diaphragm; lower cervical ACDF construct. The patient had 2 more sets of cardiac enzymes that ruled out myocardial infarction. He was seen by the interventional nurse, who recommended discharging home with arrangement for outpatient ischemic workup as well as echocardiogram. His CT scan of the abdomen and pelvis with IV contrast showed possible liver metastases, and therefore, I gave him the report of the CT scan with the clear instruction for him to see his primary care physician to pursue this further. FINAL DISCHARGE DIAGNOSIS: Acute myocardial infarction was ruled out. The patient has fatty liver with possible metastases, hypertension, hyperlipidemia, nephrolithiasis, primary osteoarthritis of both knee joints, gastroesophageal reflux disease, obstructive sleep apnea on CPAP. CHER DR: Jorge Alberto TID: [id number]
== END 2020-08-07 14:15 | disposition home or self-care (01) ==
LOC: ER 23:29 → ICU 08-07 01:16 → INTOOBSV 08-07 01:16
PROVIDERS: ADMIT Internal Medicine; ATTEND Internal Medicine
DX: I21.9 Acute myocardial infarction, unspecified (principal); K76.0 Fatty (change of) liver, not elsewhere classified; I10 Essential (primary) hypertension; E78.5 Hyperlipidemia, unspecified; N20.0 Calculus of kidney; M19.91 Primary osteoarthritis, unspecified site; K21.9 Gastro-esophageal reflux disease without esophagitis; G47.33 Obstructive sleep apnea (adult) (pediatric); E80.4 Gilbert syndrome; G45.9 Transient cerebral ischemic attack, unspecified; M17.0 Bilateral primary osteoarthritis of knee; R79.89 Other specified abnormal findings of blood chemistry; E66.01 Morbid (severe) obesity due to excess calories; F12.90 Cannabis use, unspecified, uncomplicated; Z90.49 Acquired absence of other specified parts of digestive tract; Z98.890 Other specified postprocedural states; Z86.73 Personal history of transient ischemic attack (TIA), and cerebral infarction without residual deficits; Z87.442 Personal history of urinary calculi; Z79.82 Long term (current) use of aspirin; Z79.899 Other long term (current) drug therapy; Z68.32 Body mass index [BMI] 32.0-32.9, adult
CPT/HCPCS: 36415; 71045; 74177; 80048; 80053; 80061; 80076; 80307; 81001; 82550; 83690; 83735; 83880; 84443; 84484; 85025; 85379; 85610; 85730; 93005; 99285; G0378; J7120; Q9967; G0379

== ENCOUNTER 2021-04-25 16:30 | Emergency (ER) | payer OTHER ==
[~2021-04-25] VITALS: Ht 188 cm; Wt 120.8 kg
[~2021-04-25 16:30] MED LIST changes: +CETI10TA16 PO; +CHOL500051 PO; +CIDE500T PO; +CYAN100031 PO; +OMEP20CA16 PO; +SILD50TA PO
[2021-04-25 17:54] VITALS: BP 164/95
--- NOTE | 2021-04-25 19:26 | RAD ---
XR CHEST 2V CLINICAL INDICATIONS: Reason: pain got hugged hard rosalva, left upper chest pain / Spl. Instructions : / History: COMPARISON: August 06, 2020. Findings: No acute lung infiltrate or pleural effusion or pulmonary edema or lung mass or pneumothora x is seen. Mild cardiomegaly is evident. The pulmonary vasculature, mediastinum and both bree are unr emarkable. The osseous structures appear intact. IMPRESSION: Mild cardiomegaly. No acute lung infiltrate. Electronically signed by: Enrike Romano MD (04/25/2021 7:23 PM) [id number]
--- NOTE | 2021-04-25 19:53 | PHYS DOC ---
Past History Past Medical History: Hypertension, TIA (SAWYER BANG C.O.D. BILLER) Past Surgical History: Cholecystectomy, Tonsillectomy, Other Additional Past Surgical Histo: C4-C5 REPLACED WITH CADAVER BONE; TAILBONE REMOVED (JIMMYSAWYER Mathew C.O.D. BILLER) Smoking: Non-smoker Alcohol Use: Occasionally Drug Use: None (SAWYER BANG C.O.D. BILLER) Adult General Chief Complaint Chief Complaint: CHEST PAIN HPI HPI Patient is a 60-year-old male patient presenting to the ED today complaining of muscle skeletal pain to the left-side of his chest. He states 3 days ago somebody gave him a tight hug causing him pain. Patient states his symptoms occurs only when he pushes on his left chest region. Describes the pain as mild and intermittent. Denies any difficulty breathing. He is requesting an x-ray of his chest to make sure his ribs are not broken. (SAWYER BANG C.O.D. BILLER) Review of Systems Review of Systems Constitutional: Denies fever or chills [] Eyes: Denies change in visual acuity, redness, or eye pain [] HENT: Denies nasal congestion or sore throat [] Respiratory: Denies cough or shortness of breath [] Cardiovascular: Reports left-sided chest pain GI: Denies abdominal pain, nausea, vomiting, bloody stools or diarrhea [] : Denies dysuria or hematuria [] Musculoskeletal: Denies back pain or joint pain [] Integument: Denies rash or skin lesions [] Neurologic: Denies headache, focal weakness or sensory changes [] All other systems were reviewed and found to be within normal limits, except as documented in this note. (SAWYER BANG C.O.D. BILLER) Allergies Allergies Allergies Coded Allergies Type Severity Reaction Last Updated Verified No Known Drug Allergies 04/25/21 No (SAWYER BANG C.O.D. BILLER) Physical Exam Physical Exam Constitutional: Well developed, well nourished, no acute distress, non-toxic appearance. [] HENT: Normocephalic, atraumatic, bilateral external ears normal, oropharynx moist, no oral exudates, nose normal. [] Eyes: PERRLA, EOMI, conjunctiva normal, no discharge. [] Neck: Normal range of motion, no tenderness, supple, no stridor. [] Cardiovascular:Heart rate regular rhythm, no murmur [] Lungs & Thorax: Tenderness on palpation left chest area approximately ribs 2-3 mid clavicular line, bilateral breath sounds clear to auscultation [] Abdomen: Bowel sounds normal, soft, no tenderness, no masses, no pulsatile masses. [] Skin: Warm, dry, no erythema, no rash. [] Back: No tenderness, no CVA tenderness. [] Extremities: No tenderness, no cyanosis, no clubbing, ROM intact, no edema. [] Neurologic: Alert and oriented X 3, normal motor function, normal sensory function, no focal deficits noted. [] Psychologic: Affect normal, judgement normal, mood normal. [] (SAWYER BANG APRN) Current Patient Data Vital Signs Vital Signs Date Time Temp Pulse Resp B/P (MAP) Pulse Ox O2 Delivery O2 Flow Rate FiO2 04/25/21 17:54 98.3 75 18 164/95 (118) 98 Room Air (SAWYER BANG APRN) EKG EKG [] (SAWYER BANG APRN) Radiology/Procedures Radiology/Procedures []PROCEDURE: CHEST PA & LATERAL XR CHEST 2V CLINICAL INDICATIONS: Reason: pain got hugged hard monday, left upper chest pain / Spl. Instructions: / History: COMPARISON: August 06, 2020. Findings: No acute lung infiltrate or pleural effusion or pulmonary edema or lung mass or pneumothorax is seen. Mild cardiomegaly is evident. The pulmonary vasculature, mediastinum and both bree are unremarkable. The osseous structures appear intact. IMPRESSION: Mild cardiomegaly. No acute lung infiltrate. Electronically signed by: Michael Romano MD (04/25/2021 7:23 PM) [id number] DICTATED AND SIGNED BY: MICHAEL ROMANO MD DATE: 04/25/211921 CC: VALENTINO LUGO MD; SAWYER BANG APRN ~MTH0 0 (SAWYER BANG APRN) Heart Score C/O Chest Pain: N/A (He is going home) Risk Factors: Risk Factors: DM, Current or recent (<one month) smoker, HTN, HLP, family h istory of CAD, obesity. Risk Scores: Risk Factors: DM, Current or recent (<one month) smoker, HTN, HLP, family history of CAD, obesity. (SAWYER BANG APRN) Course & Med Decision Making Course & Med Decision Making Pertinent Labs and Imaging studies reviewed. (See chart for details) This is a 60-year-old male patient presenting to the ED today complaining of soreness on the left chest area after receiving a tight pad from one of his frie nds a couple days ago. He is requesting a chest x-ray to make sure he does not have any rib fractures. Chest x-ray interpreted by radiologist as negative. Discharged home. Follow-up with PCP in a week (SAWYER BANG APRN) Course & Med Decision Making Did not see or evaluate patient.. Did not discuss patient with BATTERY BUILDER. Agree with BATTERY BUILDER's work-up and disposition per note (FANI CURIEL MD) Dragon Disclaimer Dragon Disclaimer This electronic medical record was generated, in whole or in part, using a voice recognition dictation system. (SAWYER BANG APRN) Departure Departure: Impression: Primary Impression: Contusion, chest wall Disposition: HOME / SELF CARE / HOMELESS Condition: STABLE Referrals: VALENTINO LUGO MD (PCP) follow up in one week Patient Instructions: Chest Contusion, Ojur-ss-Mgan Additional Instructions: Your chest x-ray is negative for any acute findings. Try to ice and elevate your chest region. Take the prescribed medications as ordered. Follow-up with your doctor in 1 week Scripts Naproxen (NAPROXEN) 500 Mg Tablet.dr 1 TAB PO BID, #14 TAB 0 Refills Prov: SAWYER BANG APRN 04/25/21 Cyclobenzaprine Hcl (CYCLOBENZAPRINE HCL) 10 Mg Tablet 1 TAB PO TID, #30 TAB Prov: SAWYER BANG APRN 04/25/21 Problem Qualifiers Primary Impression: Contusion, chest wall Encounter type: initial encounter Laterality: left Qualified Codes: S20.212A - Contusion of left front wall of thorax, initial encounter SAWYER BANG APRN Apr 25, 2021 19:53 FANI CURIEL MD Apr 25, 2021 21:04
[2021-04-25] MEDS ORDERED: CYCL10TA19 PO (19:55)
[2021-04-25] MEDS ORDERED: NAPR500T8 PO (19:55)
== END 2021-04-25 20:05 | disposition home or self-care (01) ==
LOC: ER 16:30
DX: S20.212A Contusion of left front wall of thorax, initial encounter (principal); I10 Essential (primary) hypertension; Z86.73 Personal history of transient ischemic attack (TIA), and cerebral infarction without residual deficits; X50.9XXA Other and unspecified overexertion or strenuous movements or postures, initial encounter; Y93.89 Activity, other specified; Y92.89 Other specified places as the place of occurrence of the external cause; Y99.8 Other external cause status
CPT/HCPCS: 71046; 99283